=== PATIENT | male | born 1950 | race Caucasian/White ===

== ENCOUNTER → 2022-08-28 09:21 | Outpatient (BNVA) | payer MEDICARE, SELFPAY | PROVIDERS: PCP Family Medicine; Referring Provider Family Medicine; Visit Provider Student in an Organized Health Care Education/Training Program | DX: M16.11 Unilateral primary osteoarthritis, right hip (principal) | CPT/HCPCS: 99203 ==

== ENCOUNTER → 2022-08-31 09:54 | Outpatient (BNVA) | payer MEDICARE, SELFPAY | PROVIDERS: PCP Family Medicine; Referring Provider Family Medicine; Visit Provider Student in an Organized Health Care Education/Training Program | DX: M16.11 Unilateral primary osteoarthritis, right hip (principal) | CPT/HCPCS: 20611; J1040 ==

== ENCOUNTER 2022-12-08 12:07 | Outpatient (CLI) | payer MEDICARE, SELFPAY ==
--- NOTE | 2022-12-08 11:30 | DI.RAD_ITS ---
Exam(s) XR PELVIS AP EXAM: XR PELVIS AP CLINICAL HISTORY: right hip preop. TECHNIQUE: 2D digital imaging was performed. Single AP view with template ball. COMPARISON: CR XR HIP MIN 2V RT from 06/07/2022 FINDINGS: BONES: No acute fracture is present. No bony destructive lesion is seen. JOINTS: No dislocation present. There is severe narrowing of the superior hip joint space prominent p eriarticular spurring and sclerosis. Multiple subchondral cysts are noted, large cysts in the superi or acetabulum. There is some flattening of the superior femoral head in adjacent acetabulum. There is a left hip prosthesis which is unremarkable. SOFT TISSUE: Vascular calcifications. IMPRESSION: Severe degenerative changes of the right hip. Left hip prosthesis is unremarkable. DATA REPOSITORY: RADIATION DOSE DELIVERED:
== END 2022-12-08 12:08 | disposition home or self-care (01) ==
LOC: DIORS 12:07
PROVIDERS: PCP Family Medicine; Referring Provider Family Medicine; Visit Provider Physician Assistant
DX: M16.11 Unilateral primary osteoarthritis, right hip (principal); Z01.818 Encounter for other preprocedural examination
CPT/HCPCS: 72170

== ENCOUNTER 2022-12-19 01:49 | Outpatient (CLI) | payer MEDICARE, SELFPAY ==
[2022-12-19 11:00] LABS: Anion Gap 9.2 mmol/L (3-11); BUN 21 mg/dL (7-18); CO2 28.8 mmol/L (21.0-32.0); CREATININE 1.5 mg/dL (0.70-1.30); Calcium 9.8 mg/dL (8.5-10.1); Chloride 102 mmol/L (98-107); Estimated GFR 49.77 (mL/min/1.73m2); Glucose 238 mg/dL (74-106); HCT 42.1 % (40.0-50.0); HGB 14.5 g/dL (13.5-17.5); MCH 32.2 pg (27.0-33.0); MCHC 34.4 % (32.0-36.0); MCV 93 fL (80-95); MPV 11.1 fL (8.0-11.0); Platelet Count 184 10^3/uL (130-400); Potassium 3.9 mmol/L (3.5-5.1); RBC 4.51 10^6/uL (4.36-5.78); RDW 11.7 % (11.8-14.1); RDW-SD 40.5 fL; Sodium 140 mmol/L (136-145); WBC 5.02 10^3/uL (4.4-10.8)
[2022-12-19 11:04] LABS: Hemoglobin A1C 7.4 % (<5.7)
[2022-12-21 14:44] LABS: Fructosamine 278 mcmol/L (200 - 285)
== END 2022-12-19 01:50 | disposition home or self-care (01) ==
LOC: LBO 01:50
PROVIDERS: PCP Family Medicine; Visit Provider Student in an Organized Health Care Education/Training Program
DX: E11.9 Type 2 diabetes mellitus without complications (principal); M16.11 Unilateral primary osteoarthritis, right hip; Z01.818 Encounter for other preprocedural examination
CPT/HCPCS: 36415; 80048; 85027; 82985; 83036

== ENCOUNTER 2023-01-04 10:49 | Day surgery (SDC) | payer MEDICARE, SELFPAY ==
[2023-01-04] VITALS (8 sets, daily range): BP systolic 116–140; BP diastolic 61–79; PULSE 58–63; RESP 16–24; TEMP 36.4–36.6; O2SAT 94–98; BMI 34.4
--- NOTE | 2023-01-04 07:00 | W.ANESPRE ---
General Info Date of Service Date Performed: 01/04/23 Height: 5 ft 8 in Weight: 102.965 kg Body Mass Index (BMI): 34.4 Surgical Procedure: Operation Date: 01/04/23 12:50 Proposed Procedure Side Surgeon p Hip Total Hip Anterior, ACTIS Right Praneeth Wood MD Meds Allergies and Home Medications Allergies Allergy/AdvReac Type Severity Reaction Status Date / Time simvastatin AdvReac Mild muscle pain Verified 01/04/23 11:10 doxycycline AdvReac Nausea Verified 01/04/23 11:10 ezetimibe-simvastatin AdvReac Intermediate muscle pain Uncoded 01/04/23 11:10 Home Medication Medication Instructions Recorded acetaminophen 500 mg tablet 1,000 mg PO Q6H PRN 06/13/22 (Tylenol Extra Strength) amlodipine 10 mg tablet 10 mg PO DAILY 06/13/22 aspirin 81 mg tablet,delayed 81 mg PO DAILY 06/13/22 release (Adult Aspirin Regimen) fenofibrate 160 mg tablet 160 mg PO DAILY 06/13/22 gabapentin 100 mg capsule 100 mg PO TID 06/13/22 losartan 100 mg tablet 100 mg PO DAILY 06/13/22 tramadol 50 mg tablet 50 mg PO DAILY 06/13/22 metoprolol succinate 100 mg 100 mg PO DAILY 12/13/22 tablet,extended release 24 hr rosuvastatin 40 mg tablet 40 mg PO DAILY 12/13/22 semaglutide 3 mg tablet (Rybelsus) 3 mg PO DAILY 12/13/22 glimepiride 2 mg tablet mg 01/04/23 Current Visit Medications: Current Medications Generic Name Dose Route Start Last Admin Trade Name Long PRN Reason Stop Dose Admin Acetaminophen 1,000 mg 01/04/23 06:00 Acetaminophen 500 Mg Tab PO 01/04/23 23:59 PREOP MICHAEL Celecoxib 400 mg 01/04/23 06:00 Celecoxib 200 Mg Cap PO 01/04/23 23:59 PREOP MICHAEL Tranexamic Acid 1,000 mg/ 60 mls @ 360 mls/hr 01/04/23 06:00 Sodium Chloride IV 01/04/23 23:59 PREOP MICHAEL Cefazolin Sodium/Dextrose 2 gm in 50 mls @ 100 mls/hr 01/04/23 06:00 Ancef Duplex IVPB 01/04/23 16:00 PREOP MICHAEL Ringer's Solution 1,000 mls @ 80 mls/hr 01/04/23 06:00 IV 02/02/23 23:59 INFUSION MICHAEL IV Miscellaneous Supplies 1 each 01/04/23 06:00 Iv Access IV 02/02/23 23:59 DIRECTED MICHAEL Sodium Chloride 0 ml 01/04/23 06:00 Normal Saline Flush 10 Ml Syr IV 02/02/23 23:59 PRN PRN Sodium Chloride 0 ml 01/04/23 06:00 Normal Saline 10 Ml Vial IJ 02/02/23 23:59 DIRECTED PRN Sterile Water 0 ml 01/04/23 06:00 Water,Injection,Sterile 10 Ml Vial IJ 02/02/23 23:59 DIRECTED PRN PFSH Active Problems Active Problems: Problem Status Onset Code Degenerative joint disease of right hip M16.11 Type 2 diabetes mellitus E11.9 Atherosclerosis of coronary artery bypass graft I25.810 Medical History Medical History Obesity Low back pain Impotence Idiopathic osteoarthritis Hypertensive disorder Hyperlipidemia Claustrophobia Surgical History Surgical History Status post left hip replacement DOS: 05/17/2014 History of colonoscopy Hx of CABG DOS: 03/23/2010 History of cystoscopy Tobacco Smoking/Tobacco Use Status: Never Alcohol Alcohol Intake: current Alcohol intake frequency: 0-2 drinks per day Substance Use Substance use: Never Substance use type: does not use Vital Signs and Lab Results Vital Signs Most Recent Vital Signs in EMR: Temp Pulse Resp BP Pulse Ox 36.4 C L 60 18 130/71 98 01/04/23 10:55 01/04/23 10:55 01/04/23 10:55 01/04/23 10:55 01/04/23 10:55 Lab Results Blood Type / Crossmatch: No Data to Display Complete Blood Count: White Blood Count 5.02 10^3/uL (4.4-10.8) 12/19/22 10:25 Red Blood Count 4.51 10^6/uL (4.36-5.78) 12/19/22 10:25 Hemoglobin 14.5 g/dL (13.5-17.5) 12/19/22 10:25 Hematocrit 42.1 % (40.0-50.0) 12/19/22 10:25 Platelet Count 184 10^3/uL (130-400) 12/19/22 10:25 Complete Metabolic Panel: Sodium 140 mmol/L (136-145) 12/19/22 10:25 Potassium 3.9 mmol/L (3.5-5.1) 12/19/22 10:25 Chloride 102 mmol/L (98-107) 12/19/22 10:25 Carbon Dioxide 28.8 mmol/L (21.0-32.0) 12/19/22 10:25 BUN 21 mg/dL (7-18) H 12/19/22 10:25 Creatinine 1.5 mg/dL (0.70-1.30) H 12/19/22 10:25 Est GFR (CKD-EPI 2020) 49.77 (mL/min/1.73m2) 12/19/22 10:25 Calcium 9.8 mg/dL (8.5-10.1) 12/19/22 10:25 Glucose 238 mg/dL (74-106) H 12/19/22 10:25 Hemoglobin A1c 7.4 % (<5.7) H 12/19/22 10:25 Liver Function Panel: No Data to Display Coagulation Panel: No Data to Display Cardiac Panel: No Data to Display Arterial Blood Gas: No Data to Display Venous Blood Gas: No Data to Display Pancreas Panel: No Data to Display Thyroid Panel: No Data to Display Infectious Disease: No Data to Display Blood Cultures: No Data to Display Toxicology Panel: No Data to Display Anesthesia Assessment and Plan Anesthesia History Personal History: No History of Anesthesia Complications Family History: No Family History of Anesthesia Complications Exercise Tolerance Exercise Tolerance: Unknown (can go up stairs, but has to do one stair at a time due to his hip. ) Cardiac & Pulmonary Exam Cardiac Exam: Normal S1/S2 Heart Sounds Pulmonary Exam: Clear Bilateral Breath Sounds Implantable Cardiac Device Does patient have a Pacemaker or an ICD?: No Airway Exam Known Difficult Airway: No Mallampati Class: 3 Mouth Opening: Normal (> 3cm) Thyromental Distance: Less than 3 cm Neck Range of Motion: Limited ROM Neck Circumference: Thick Teeth Condition: Generalized Poor Dentition ASA Classification ASA Score: ASA 2 Emergency Case?: No NPO Status NPO Status: NPO Clears >2 hours, Solids >8 hours Anesthesia Plan Resuscitation Status: Full Code Anesthesia Technique: Spinal Anesthesia Airway Planned: Natural Airway Monitors Used: Standard Monitors Preoperative Comments:: 72 yo male for MOISES. Sig PMHx: CABG (2010, denies issues or chest pain), HTN (amlodipine, metoprolol, losartan), claustrophobia, DMII (A1c 7.4 in 0ct 23, rybelsus). never smoker, daily EtOH.
[2023-01-04] MEDS: Lactated Ringers 1,000 ML 80 ML IV (11:45)
[2023-01-04] MEDS: Acetaminophen 500 MG TAB 1000 MG PO (11:46)
[2023-01-04] MEDS: Celecoxib 200 MG CAP 400 MG PO (11:47)
--- NOTE | 2023-01-04 12:00 | DI.RAD_ITS ---
Exam(s) XR HIP RT IN OR EXAM: XR HIP RT IN OR CLINICAL HISTORY: Degenerative joint disease of right hip TECHNIQUE: 2D and realtime digital imaging was performed. CONTRAST MATERIAL: Refer to procedure report. COMPARISON: CR XR PELVIS AP from 12/08/2022 FINDINGS: Fluoroscopy was provided for Dr. Wood during the performance of a right total hip arthroplasty. Please refer to the procedure report for complete details. Ka,r=5.28 mGy IMPRESSION: RADIATION DOSE DELIVERED:
[2023-01-04] MEDS: ceFAZolin 2 GM/50 ML BAG IVPB (13:08)
--- NOTE | 2023-01-04 13:18 | PDOC.DSDIS_ITS ---
Date of service: 01/04/23 Time of Service: 15:24 Discharge Plan Disposition Patient Disposition: Home Condition: Good Discharge Details Reason For Visit: Right Hip DJD Attending Provider: Praneeth Wood Primary Care Provider: GUILLAUME JIMENEZ Home Meds and New Rx's Prescriptions: New acetaminophen 500 mg tablet 1,000 mg PO Q8H PRN (Reason: pain) Qty: 90 3RF aspirin 81 mg tablet,delayed release (DR/EC) 81 mg PO BID Qty: 60 0RF celecoxib 200 mg capsule 200 mg PO BID PRN (Reason: pain) Qty: 60 1RF pantoprazole 40 mg tablet,delayed release (DR/EC) 40 mg PO DAILY Qty: 30 0RF oxycodone 5 mg tablet 5 mg PO Q4H PRNQty: 18 0RF Continued amlodipine 10 mg tablet 10 mg PO DAILY fenofibrate 160 mg tablet 160 mg PO DAILY gabapentin 100 mg capsule 100 mg PO TID losartan 100 mg tablet 100 mg PO DAILY metoprolol succinate 100 mg tablet extended release 24 hr 100 mg PO DAILY rosuvastatin 40 mg tablet 40 mg PO DAILY Rybelsus 3 mg tablet 3 mg PO DAILY glimepiride 2 mg tablet Patient Comments: TAKE ONE TABLET BY MOUTH EVERY DAY Held aspirin [Adult Aspirin Regimen] 81 mg tablet,delayed release (DR/EC) 81 mg PO DAILY Hold Instructions: Resume on 02/03/23. Discontinued tramadol 50 mg tablet 50 mg PO DAILY acetaminophen [Tylenol Extra Strength] 500 mg tablet 1,000 mg PO Q6H PRN Discharge Instructions Additional Instructions: Total Hip Discharge Instructions Activity: The most important activity is to walk. You should try to take short walks a few times a day. You have no restrictions on movement or positioning, but do not try to force what you do. You will find some stiffness and weakness with hip flexion (lifting your knee). Do not try to strengthen this too early, continue to practice walking and stairs and this will come. - Outpatient physical therapy can be helpful to help return you to a normal gait and improve your flexibility and strength. This can start around 2 weeks. For some patients, it?s not necessary. Usually this is determined at the time of discharge or at the first post-operative visit. - You should wear the BROCK hose on both legs for 2 weeks. Dressing: Keep the surgical dressing in place for at least one week. After the first week it may be removed and replace with light gauze and tape or nothing. It may get wet after 3 days but avoid soaking the dressing. If it gets wet, just lightly pat dry. It is important to always keep some gauze between skin folds, especially when you are sitting. Spend some time with the wound exposed when you are lying flat as the incision does wrinkle onto itself. Medications: - You should take Tylenol and an anti-inflammatory Celebrex as your primary pain control medications. If the Celebrex is too expensive or not covered, please call the office for another alternative (Advil/Ibuprofen or Naproxen/Aleve). - You have been prescribed a stronger pain medication Oxycodone for breakthrough pain, take as needed as prescribed. - You have also been prescribed a stomach acid reduction agent Pantoprozole to help reduce stomach acid and reflux. - You will be taking Aspirin 81mg twice a day for DVT prevention unless instructed otherwise. - If you have constipation you should take Colace or Miralax (both [id number]). It takes most people 3-4 days to have a bowel movement. Follow-up: 2 weeks If you have any acute concerns or questions, please do not hesitate to contact the office at [phone]. You may contact Dr. Wood with any questions after hours through the hospital at [phone] or on his cell phone at [phone]. Referrals: Praneeth Wood MD [ [facility] STAFF PHYSICIAN] - Equipment/Supplies: Walker Activity:: Activity as Tolerated Shower/Bathe:: Cover Diet:: Carb Counting Discharge Orders Discharge Orders: Discharge Order (Routine); Ordered 01/04/23 Ordered By: Praneeth Wood
--- NOTE | 2023-01-04 15:34 | W.PM.OP ---
Date of service: 01/04/23 Time of Service: 13:30 Operative Note Operative Note DATE OF PROCEDURE: 01/04/23 PRE-OP DIAGNOSIS: Right Hip Osteoarthritis POST-OP DIAGNOSIS: same PROCEDURE: Right Anterior Total Hip Arthroplasty with Intraoperative Navigation SURGEON: Praneeth Wood SUPERINTENDENT [employer] FIELD DRILLING: Karla Carlton ANESTHESIA TYPE: Spinal Refer to Anesthesia Record ESTIMATED BLOOD LOSS: 600 PATHOLOGY: none sent TOURNIQUET TIME: 0 COMPLICATIONS: None Patient was transported to: PACU Patient's condition: stable Implants: 1. Depuy Dateland Acetabular Component, 54mm 2. Depuy Acetabular Liner, [id number] 3. Depuy Actis Standard Collared Femoral Stem, Size 5 4. Depuy Altrx Ceramic Femoral Head, Size 36+12mm Indications: I have seen Jas in clinic for symptoms of hip arthritis, confirmed with radiographic findings. He has exhausted nonoperative methods and was having significant limitations in daily function and desired better function and less pain. I discussed the technical details of a hip replacement. I explained the risks of the procedure to include, but not limited to, bleeding, infection, pain, stiffness, fracture, damage to nerves and vessels, damage to muscles and tendons, loosening, instability, leg length inequality, need for repeat procedure, blood clot and cardiopulmonary demise. Despite these risks, Jas elected to proceed. Findings: There was significant signs of arthritis throughout the hip with large osteophytes and contracted capsular tissue. Procedure Description: Jas was greeted in the preoperative holding area where the correct side was identified and marked. The consent was reviewed with the patient and signed. The history and physical was updated. All questions were answered. He was taken back to the operating room. A spinal anesthestic was then administered. The feet were wrapped with cast padding and Coban and then placed into the boot liners and then into the boots. Care was taken to protect the skin and make sure the heels were fully down and the boots were stable. The patient was then positioned onto the HANA table. Both legs were held in a neutral position. SCDs were applied. The patient was then slid down onto a peroneal post. Prophylactic antibiotics in the form of Cefazolin were administered. 1g of Tranxemic Acid was given intravenously within 30 minutes of incision. The right leg was then prepped with Chloraprep and draped in a standard fashion. A second prep with Chloraprep was performed prior to placement of a shower-curtain type drape with Iodine impregnated skin protection. A timeout to confirm correct identity, side and site, procedure, allergies, anesthesia, and medical concerns was performed. An obliquely oriented incision was made starting lateral to the ASIS and running distal over the Tensor Fascia Geno (TFL) muscle belly toward the fibular head, approximately 10cm. The skin and soft tissue was dissected sharply, through Jamie?s fascia, and to the fascia of the TFL. With the fascia and superior border of the IT band identified, the fascia was incised with a new knife just above any perforators from the IT band. The TFL muscle belly was bluntly dissected away from the fascia and moved laterally. The fat between TFL and rectus was identified to ensure the dissection was not within the TFL. Blunt dissection created space between abductors and the capsule and retractor was placed over the lateral femoral neck. The fibers of the rectus femoris tendon were identified and these were freed from the anterior capsule. A second cobra retractor was placed around the medial femoral neck. The TFL was further retracted laterally to show the deep fascia. Careful dissection through this layer identified three main crossing vessels of the lateral femoral circumflex. These were cauterized in multiple locations and then cut without any noticeable bleeding. The TFL was further released bluntly from the deep fascia to expose anterior hip capsule and fat The Yousif orthopaedic retractor was then placed beneath the TFL and against sartorius and medial soft tissues to protect and retract the soft tissues. A T-capsulotomy was then performed starting at the superior lateral acetabulum and moving distally to the intertrochanteric ridge. These capsular flaps were tagged with a No. 1 Ethibond and elevated from within. The capsular flaps were released to the shoulder of the lateral neck and to the lesser trochanter to give excellent visualization of the proximal femur. A neck osteotomy was performed using an oscillating saw based on preoperative templates. This cut started in the shoulder and of the lateral neck and exited medially. The saw was at all times directed medially to avoid injury to the greater trochanter. Gross traction was applied to the leg and the osteotomy opened. The femoral head was removed with a corkscrew, making sure to protect the TFL on its exit. Traction was released after head removal. This was measured on the back table to determine the starting reamer size. Portions of the rectus obscuring visualization were minimally elevated off the superior acetabulum. An anterior retractor was placed over the anterior wall between capsule and labrum and attached to the Gripper retraction system. The femur was rotated to 90 degrees and medial capsule was fully released until the lesser trochanter was palpable and visible; the femur was returned to 30 degrees. A posterior retractor was placed similarly between capsule and labrum. This provided excellent visualization. The contents of the cotyloid fossa were removed with electrocautery and the labrum was removed with a knife. There was a notable floor osteophyte. There was significant chondromalacia of the superior acetabulum. Acetabular reaming began with a 48mm reamer. This first reaming was directed anterior to posterior and medial to get down to the true floor. This was inspected and reamed until the true floor was reached. The anterior retractor was then released and entry and exit was provided by traction on the capsular flaps. I then reamed sequentially up to a 54mm reamer where good fit was obtained. The larger reamers were oriented based on anatomical reference of the anterior and lateral kelly to ensure proper abduction and anteversion. Positioning and size was confirmed with the fluoroscopy. A 54mm Depuy [place] acetabular component was selected. The acetabulum was reamed around the periphery with the selected acetabular size to prevent a rim fit. The deep tissues were irrigated. The acetabular component was then impacted in a position of about 40-45 degrees of abduction and 15-20 degrees of anteversion, using the patient?s anatomy as the ultimate landmark. Fluoroscopy was used to confirm this. There was excellent conservation engineer of the acetabular component and the inserting handle was removed. The acetabular liner, Depuy [id number] polyethylene liner, was inserted and lined up with the tines of the acetabular component. There was no soft tissue interposition. The liner was then impacted into position and confirmed to be well-seated. A portion of the indra-articular cocktail was then injected around the acetabulum into the capsule and periosteum. This cocktail consisted of 123mg of Ropivacaine, 0.25mg of Epinephrine, 0.04mg of Clonidine, and 15mg of Ketorolac, diluted to 50cc. The leg was rotated to 120 degrees. Any remaining medial capsule was released until the lesser trochanter was easily palpable. A retractor was placed medially. The lateral capsule was further released into the shoulder to allow access to the greater trochanter. A Anderson retractor was placed over the greater trochanter which allowed the trochanter to flip in front of the capsule for excellent exposure. The leg was brought down into maximal extension and 20 degrees of adduction while ensuring there was no impingement on the acetabulum. Any remnant capsule within the trochanter was released. Piriformis and obturator externis were identified and protected. There was excellent access to the proximal femur. The lateral neck remnant was removed with a rongeur. A blunt canal probe was used to identify the canal and trajectory for later broaching. A box osteotome initiated the broach course. A small curved rasp and a curved curette were used to work laterally. Broaching then began with a starter Actis broach. This was inserted manually around the trochanter and into the canal before mallet blows. The broach was seated to a few millimeters below the cut level based on the neck cut and the preoperative template. Sequential broaching was continued with the [employer] pneumatic broaching device until a tight fit was obtained with good rotational control of the femur. A trial standard neck was inserted along with a +5 trial head. The leg was brought out of extension and adduction and then reduced with traction and internal rotation. The leg was stable anteriorly in a position of 30 degrees of extension and 90 degrees of external rotation. Fluoroscopy was used to ensure there was no fracture and the stem was seated well. Leg lengths were checked with an AP pelvis and pelvic reference points. [facility] navigation system was used to confirm appropriate positioning and leg length and offset. Once content with the desired offset and leg lengths, the leg was brought back into extension, external rotation and adduction. The periosteum and surrounding tissue was injected with remaining portion of the indra-articular cocktail. The proximal femur was irrigated as well as the deep tissues. The [employer] standard collared stem, size 5, was then manually inserted into the proximal femur making sure to control rotation. It was then malleted into position with light blows, giving breaks to allow bone expansion and decrease risk of fracture. The selected Depuy Altrx Ceramic Head, size 36+12mm, was then placed onto the clean and dry trunnion and secured with impaction onto the tapered fit. The leg was brought back out of extension and adduction and reduced with traction and internal rotation. Stability was confirmed with no shuck at 90 degrees of external rotation and 30 degrees of extension. No impingement through range of motion arc. Final x-ray images were obtained with fluoroscopy to confirm adequate positioning and no intraoperative fracture. The deep tissues were thoroughly irrigated with Surgiphor, betadine solution. This was allowed to sit in the wound for 3 minutes before being thoroughly irrigated out with normal saline. The capsule was then reapproximated with the previously placed Ethibond sutures. The TFL fascia was finally closed with a No. 2 Stratafix, barbed suture. Deep tissues were then reapproximated with 0 Vicryl and a running 2-0 Vicryl. The skin was closed with a running 4-0 Monocryl in a subcuticular fashion. This was reinforced with skin glue. A Mepilex silver dressing was applied. At the end of the case, all counts were correct. Jas was transferred to the hospital bed without difficulty and suffering no apparent complication. Jas has a good prognosis. Physical therapy will start today and without restrictions, weight-bearing as tolerated. Aspirin 81mg BID will be used for DVT prophylaxis.
[2023-01-04] MEDS: fentaNYL 100 MCG/2 ML VIAL IVP (15:39)
--- NOTE | 2023-01-04 16:01 | W.ANESPOSTOP ---
Postoperative Evaluation Date, Time and Location Date Performed: 01/04/23 Time Performed: 16:01 Patient Location: PACU Vital Signs Most Recent Imported Vital Signs: Most Recent Vital Signs Temp Pulse Resp BP Pulse Ox 36.6 C 60 16 129/79 97 01/04/23 15:55 01/04/23 15:55 01/04/23 15:55 01/04/23 15:55 01/04/23 15:55 Pain Score Most Recent Pain Score: Most Recent Pain Score Pain Level 2 01/04/23 10:55 Assessment Mental Status: Awake (Alert & Oriented to Patient Baseline) Airway and Respiratory Function: Patent airway with normal (patient baseline) respiratory exam Cardiovascular Function: Hemodynamically Stable Hydration Status: Adequately Hydrated Nausea & Vomiting: No Nausea or Vomiting Pain: Pain is tolerable per patient Peripheral Nerve Block: Patient did not receive a nerve block
--- NOTE | 2023-01-04 16:18 | IN_ITS ---
Date of service: 01/04/23 Time of Service: 04:18 PT Notes Visit Reasons: Right Hip DJD Physical Therapy Day Surgery Initial Evaluation Date: 01/04/2023 Referring Doctor: Praneeth Wood MD PT Orders: PT CONSULT: SP Ortho Surgery. S/P R MOISES Precautions: WBAT on the R LE with AD. Patient Profile/Admitting Diagnosis: Jas is a 72-year-old male with degenerative joint disease of the right hip and is status post right total hip arthroplasty on postoperative day 0. PMHX: Medical History (Updated 12/05/22 @ 15:21 by Erna Hanna) Claustrophobia Hyperlipidemia Hypertensive disorder Idiopathic osteoarthritis Impotence Low back pain Obesity Surgical History (Updated 08/28/22 @ 17:09 by Erna Hanna) History of colonoscopy History of cystoscopy Hx of CABG Status post left hip replacement DOS: 05/17/2014 Social History/Home Situation: Lives with in a private home with no steps to enter DOS: 03/23/2010 Equipment Owned/DME: None Subjective: Reports a 2?10 pain in the right hip and thigh at rest and with movement. Denies headache, chest pain, and lightheadedness throughout session. Objective: General Observation: Supine in bed. Mepilex Ag over surgical incision. TEDs to be legs. Mental Status: Alert and oriented x4 Pain: As above ROM: Right Lower Extremity: Hip flexion WFL. Hip abduction WFL. Knee flexion WFL. Ankle dorsiflexion WFL. Ankle plantarflexion WFL. Left Lower Extremity: Hip flexion WFL. Hip abduction WFL. Knee flexion WFL. Ankle dorsiflexion WFL. Ankle plantarflexion WFL. Strength: Right Lower Extremity: Hip flexors 4/5. Hip abductors 4/5. Knee flexors 5/5. Knee extensors 4/5. Ankle dorsiflexors 5/5. Ankle plantarflexors 5/5. Left Lower Extremity:Hip flexors 5/5. Hip abductors 5/5. Knee flexors 5/5. Knee extensors 5/5. Ankle dorsiflexors 5/5. Ankle plantarflexors 5/5. Sensation: intact as to pain and light pressure in bilateral lower extremities Bed Mobility/Transfers: Supine to sit stand by assist with cues provided for use of BUE for support Sit to stand stand by assist with cues provided for use of BUE for support Stand to sit stand by assist with cues provided for use of BUE for support Bed to chair stand by assist with cues provided for use of BUE for support Gait: Facilitated safe and correct performance of level surface ambulation covering a distance of 100 feet + 50 feet using front-wheel walker with step to gait pattern without report of increased pain in the right hip. Balance: Static Sitting: Normal Dynamic Sitting: Normal Static Standing: Fair Dynamic Standing: fair Special Tests: Mobility Limitations Standardized Measure [facility] AM-PAC 6 clicks Basic Mobility Inpatient Short Form: Raw Score: 22 CMS Score: 21% deficit Informed Consent/Education: Patient instructed in purpose of PT consult. Packet containing MOISES exercise protocol has been given to patient. Education and training on initial set of exercises that can be done at home have been completed with patient. Trained patient with correct performance of exercises below to maximize motor control, joint flexibility, soft tissue extensibility of the R hip musculature to facilitate return to independent functional mobility performance. Access Code: [email or web address] URL: [email or web address] Date: 01/04/2023 Prepared by: Windy Milligan Exercises - Gluteal Sets - 1 x daily - 7 x weekly - 1 sets - 10 reps - 5 hold - Supine Heel Slide - 1 x daily - 7 x weekly - 1 sets - 10 reps - 5 hold - Supine Ankle Pumps - 1 x daily - 7 x weekly - 1 sets - 10 reps - 5 hold - Seated March - 1 x daily - 7 x weekly - 1 sets - 10 reps - 5 hold - Seated Long Arc Quad - 1 x daily - 7 x weekly - 1 sets - 10 reps - 5 hold Assessment: Patient reports using front wheeled walker for all mobility ADL performance to maximize independence and reduce fall risk. Patient presents with clinical signs and symptoms consistent with current/admitting diagnoses that have resulted to mobility limitations, gait instability, generalized weakness, and impairment of motor control as demonstrated by the following impairment level findings: 1. Decreased strength to right hip nee major muscle groups 2. Impaired standing balance 3. Limitation of joint range of motion in right hip Impairments are contributing to the following functional limitations: 1. Inability to safely ambulate without assistive device 2. Increase completion time for mobility ADL performance 3. Increased fall risk Patient is assessed as a 39276 moderate complexity based on the following: History: 72 [id number] male with impairment level findings, functional limitations, and past medical history as indicated above Examination: Demonstrable impairment in strength, balance, and mobility level with underlying impairments and functional limitations as documented above Presentation: Evolving Decision Makin moderate complexity Goals: N/A. PT evaluation and 1-2 treatment sessions only for functional mobility training using recommended AD and for HEP instruction. Plan of Care/Treatment Plan: N/A. PT evaluation and 1-2 treatment session only for functional mobility training using recommended AD and for HEP instruction. DISCHARGE RECOMMENDATIONS: Home when medically cleared by orthopedic surgeon. Recommend outpatient PT services in order to optimize functional mobility outcomes and facilitate return to independent community ambulation without an assistive device. TREATMENT CODE/TIME: 18084 x 26 minutes for 1 unit beginning at 16:18 PM. Thank you for the opportunity to participate in the care of this patient. Windy Milligan PT, DPT, CLT [facility] [place], [place]
[2023-01-04] MEDS: oxyCODONE 5 MG TAB PO (16:20)
== END 2023-01-04 17:20 | disposition home or self-care (01) ==
PROVIDERS: PCP Family Medicine; Visit Provider Student in an Organized Health Care Education/Training Program
PROC: (CPT 27130; principal; 2023-01-04 12:30)
DX: M16.11 Unilateral primary osteoarthritis, right hip (principal); E11.9 Type 2 diabetes mellitus without complications; Z79.899 Other long term (current) drug therapy; I10 Essential (primary) hypertension; E78.5 Hyperlipidemia, unspecified
CPT/HCPCS: 20985; 27130; C1776; 97162; 73501; J0690; J1100; J2001; J2250; J2371; J2405; J3010

== ENCOUNTER 2023-01-18 10:17 | Observation (INO) | payer MEDICARE, SELFPAY ==
[2023-01-18] VITALS (41 sets, daily range): BP systolic 109–161; BP diastolic 54–84; PULSE 47–62; RESP 16–28; TEMP 36.8–37.2; O2SAT 94–100
--- NOTE | 2023-01-18 10:15 | RT.EKG_ITS ---
APPROVED REPORT Exam: Resting ECG Reason for Exam: sob Patient Location: E HR:58 bpm ECG Measurements Heart Rate 58 AXIS AK 173 P 34 QRSd 103 QRS 45 QT 439 T 98 QTc 430 Conclusion Sinus bradycardia...rate< 60 Anteroseptal infarct, old...Q >40mS, V1-V2 ST depression I, aVL. T wave inversion in aVL T wave flattening in V6. [address] elevation in III, no o ther leads. Q wave in III, V1, V2. Minor changes from previous
--- NOTE | 2023-01-18 10:20 | W.ED.GENAD ---
Discharge Plan Disposition Patient Disposition: Admit to [facility] Discharge Details Clinical Impression: Chest pain, Atherosclerosis of coronary artery bypass graft, History of total right hip replacement, Shortness of breath, Type 2 diabetes mellitus, Abnormal ECG Primary Care Provider: GUILLAUME JIMENEZ ED Provider: Tracy Alvarez Home Meds and New Rx's Prescriptions: No Action aspirin 81 mg tablet,delayed release (DR/EC) 81 mg PO BID Qty: 60 0RF pantoprazole 40 mg tablet,delayed release (DR/EC) 40 mg PO DAILY Qty: 30 0RF acetaminophen 500 mg tablet 1,000 mg PO Q8H PRN (Reason: pain) Qty: 90 3RF amlodipine 10 mg tablet 10 mg PO DAILY aspirin [Adult Aspirin Regimen] 81 mg tablet,delayed release (DR/EC) 81 mg PO DAILY Hold Instructions: Resume on 02/03/23. fenofibrate 160 mg tablet 160 mg PO DAILY losartan 100 mg tablet 100 mg PO DAILY metoprolol succinate 100 mg tablet extended release 24 hr 100 mg PO DAILY rosuvastatin 40 mg tablet 40 mg PO DAILY Rybelsus 3 mg tablet 3 mg PO DAILY Hold Instructions: Changed by Provider glimepiride 2 mg tablet 2 mg PO DAILY Patient Comments: TAKE ONE TABLET BY MOUTH EVERY DAY celecoxib 200 mg capsule 200 mg PO BID Discharge Data Discharge Physician: Tracy Alvarez Medical Decision Making This is a 73-year-old male with history of coronary artery bypass grafting who is status post right hip replacement 2 weeks ago who presents with exertional nonpleuritic right-sided chest pain similar to his previous symptoms prior to his bypass grafting. He has some mild ST depression and isolated ST elevation in lead III but not in any contiguous leads. He has swelling of the right leg which is expected after right hip replacement but could also be a PE/DVT. I feel strongly that the patient should be admitted but we will do a work-up including a D-dimer, EKG and troponin. The patient has not had any cardiac work-up such as stress testing or echocardiogram since his bypass 11 years ago. We will also repeat his EKG and obtain a CBC to rule out anemia and left shift we will obtain a D-dimer and BNP to rule out congestive heart failure. I will also order a right lower extremity ultrasound to look for DVT. The patient is currently pain-free, but I will give him a full loading dose of aspirin and if he develops any further chest pain we will give him nitroglycerin. Differential Diagnosis Differential Diagnosis: ACS, exertional angina, PE, pneumonia, GERD Medical Records Medical records reviewed: Yes I reviewed the patient's medical records. Imaging Data Radiologic Study: Imaging: X-Ray (Chest x-ray) Radiologist's impression: No acute pulmonary findings Radiologic Study #2: Imaging: CT Scan (CTA chest) Radiologic Study #3: Imaging: Ultrasound (Right lower leg ultrasound) Radiologist's impression: 1. No evidence of right lower extremity DVT. 2. Findings were discussed with the emergency department 11:45 AM on 01/18/2023. Lab Data Lab results reviewed: Yes I reviewed the patient's lab results. Lab results narrative: Mild anemia elevated D-dimer mild renal insufficiency, hyperglycemia, elevated proBNP suggestive of congestive heart failure, negative COVID influenza and RSV ECG Data Attestation: I personally reviewed and interpreted this ECG (s) as follows: Prior ECG tracings: available for review HPI General Date/Time Provider Initiated Documentation: 01/18/23 10:20. Information obtained by: patient and family (Significant other, Dr. Wood). History of Present Illness described as moderate, Quality is described as burning, HPI Narrative: Time seen was 10:30 AM in bed 1. The patient is a 73-year-old male with history of coronary artery bypass grafting 11 years ago who presents with dyspnea on exertion and right-sided burning chest pain which began approximately 1 weeks ago. The patient had a right hip replacement by Dr. Wood 2 weeks ago. The patient said about a week ago he began noting shortness of breath and right-sided chest burning with exertion which was relieved by rest. He tells me this is similar to the symptoms he had prior to his bypass grafting. The pain is relieved after 1 to 2 minutes with rest. He is currently pain-free. He had difficulty giving me a numeric pain score. The patient states he has not had any testing such as stress testing or echocardiogram since his bypass in 2010. He tells me the chest pain was not pleuritic and he is not short of breath at rest. He denies any fevers or chills. He denies any cough or URI symptoms. He does have swelling in the right leg since the surgery 2 weeks ago. He has no history of thromboembolic disease. The patient usually takes 1 baby aspirin a day but has been advised to take it twice daily since the surgery. He denies any fevers or chills. He denies any radiation down his arms or to his back. He denies any abdominal pain, numbness tingling or weakness. The patient tells me he is very reluctant to be admitted to the hospital but would not elaborate other than stating he does not like being admitted. The patient also tells me that he drinks 1-2 cocktails a day. He tells me he does not have difficulty stopping and does not have any withdrawal symptoms. 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 Related Data Home Medications Medication Instructions Recorded Confirmed amlodipine 10 mg tablet 10 mg PO DAILY 06/13/22 01/18/23 aspirin 81 mg tablet,delayed 81 mg PO DAILY 06/13/22 01/18/23 release (Adult Aspirin Regimen) fenofibrate 160 mg tablet 160 mg PO DAILY 06/13/22 01/18/23 losartan 100 mg tablet 100 mg PO DAILY 06/13/22 01/18/23 metoprolol succinate 100 mg 100 mg PO DAILY 12/13/22 01/18/23 tablet,extended release 24 hr rosuvastatin 40 mg tablet 40 mg PO DAILY 12/13/22 01/18/23 semaglutide 3 mg tablet (Rybelsus) 3 mg PO DAILY 12/13/22 01/18/23 acetaminophen 500 mg tablet 1,000 mg (2 x 500 mg) PO Q8H PRN 01/04/23 01/18/23 pain #90 tabs aspirin 81 mg tablet,delayed 81 mg PO BID #60 tabs 01/04/23 01/18/23 release glimepiride 2 mg tablet 2 mg PO DAILY 01/04/23 01/18/23 pantoprazole 40 mg tablet,delayed 40 mg PO DAILY #30 tabs 01/04/23 01/18/23 release celecoxib 200 mg capsule 200 mg PO BID pain 01/18/23 01/18/23 Previous Rx's Medication Instructions Recorded acetaminophen 500 mg tablet 1,000 mg (2 x 500 mg) PO Q8H PRN 01/04/23 pain #90 tabs aspirin 81 mg tablet,delayed 81 mg PO BID #60 tabs 01/04/23 release pantoprazole 40 mg tablet,delayed 40 mg PO DAILY #30 tabs 01/04/23 release Allergies Allergy/AdvReac Type Severity Reaction Status Date / Time simvastatin AdvReac Mild muscle pain Verified 01/18/23 10:56 doxycycline AdvReac Nausea Verified 01/18/23 10:56 ezetimibe-simvastatin AdvReac Intermediate muscle pain Uncoded 01/18/23 10:56 Review of Systems Narrative: see hpi Musculoskeletal Comments: Right hip replacement and right leg swelling PFSH All Active Problems (Updated 01/18/23 @ 15:47 by Pat Osborne NP) Heart failure (Acute) Abnormal ECG (Acute) Chest pain (Acute) Shortness of breath (Acute) History of total right hip replacement (Acute 01/04/23) Type 2 diabetes mellitus (Acute) Atherosclerosis of coronary artery bypass graft (Acute) Medical History (Updated 01/18/23 @ 15:47 by Pat Osborne NP) Obesity Low back pain Impotence Idiopathic osteoarthritis Hypertensive disorder Hyperlipidemia Claustrophobia Surgical History (Updated 01/18/23 @ 12:46 by Tracy Alvarez MD) Status post left hip replacement DOS: 05/17/2014 History of colonoscopy Hx of CABG DOS: 03/23/2010 History of cystoscopy Social History Smoking/Tobacco Use Status: Never Smoking risk assessment performed?: Yes Alcohol Intake: current Alcohol Intake frequency: 0-2 drinks per day Drug use: Never Substance use type: does not use Housing: house Do you feel safe at home: Yes Do you feel safe in your relationship?: Yes Exam Narrative Exam Narrative: The patient is a well-developed well-nourished male lying on the stretcher in no acute distress. He has mild facial weakness. He is mildly hypertensive his heart rate is 59. Respiratory rate 22 with a room air O2 sat of 100%. He is able to speak in full sentences. Const General: cooperative, healthy appearing, comfortable, no acute distress, well developed, well groomed and well hydrated Nutritional Appearance: average body habitus and well nourished Orientation: alert, awake and oriented x3 HENMT Head: normal to inspection, normocephalic and atraumatic Ears: hearing grossly normal bilaterally and external ears normal General nose exam: external nose normal, nares normal and no nasal discharge Face and sinus: sinuses nontender Mouth: oral mucosae normal, lip normal, tongue normal, oropharynx normal, moist mucous membranes and other (Normal phonation. The patient is handling secretions.) Throat: posterior oropharynx normal and uvula midline Other: Mild right facial weakness Eyes General: appearance normal, both eyes and all related structures Eyelids: eyelids normal Conjunctivae: conjunctivae normal Sclera: sclerae normal Cornea: corneas normal Pupils: PERRL EOM: EOM intact bilaterally and No nystagmus Neck Neck: normal visual inspection, full ROM, no lymphadenopathy, no meningeal signs, trachea midline and supple Lymphatic: no lymphadenopathy noted Chest Chest: normal inspection of the chest Resp Effort & Inspection: normal respiratory effort, able to speak in complete sentences, no audible wheezes, no nasal flaring, no respiratory distress, no retractions, no stridor, not tachypneic, no tracheal deviation, no use of accessory muscles, No prolonged expiratory phase and other (Normal inspiratory to expiratory ratio.) Auscultation: clear to auscultation bilaterally, no rales, no rhonchi, no wheezes and no rubs Tactile Fremitus: tactile fremitus absent Cardio Jugular venous pressure: no JVD Palpation: normal PMI Rate: regular rate Rhythm: regular rhythm Heart Sounds: S1 normal, S2 normal, no gallops, no murmurs and no rubs Other: The patient has a well-healed sternotomy scar GI Inspection: normal to inspection and non-distended Palpation: soft, no hepatosplenomegaly, no guarding and nontender Percussion: normal to percussion Auscultation: normal bowel sounds General: No CVA tenderness Back/Spine/Pelvis Back: no CVA tenderness and No back tenderness Cervical Spine: normal cervical lordosis, cervical ROM normal, No cervical muscular tenderness, No pain with cervical ROM, No cervical spinal tenderness and No step off deformity Thoracic/Lumbar Spine: thoracic and lumbar spine normal to inspection, No thoracic spinal tenderness and No lumbar spinal tenderness Pelvis: no pain with anterior-posterior compression and no pain with lateral compression Skin General skin exam: no rashes or lesions noted, turgor normal, no petechiae, no purpura and other (Skin is normal for ethnicity.) Lesions: no lesions Rashes: no rashes Trauma: no lacerations or abrasions Neuro General: patient alert, patient awake, patient oriented x3, moves all extremities and no meningeal signs Cranial Nerves: PERRL, accommodation normal, EOM intact bilaterally, no nystagmus, tongue midline, hearing normal and no nystagmus Cognition: normal cognition Speech: speech normal Motor: muscle tone normal throughout and strength 5/5 throughout Sensory Exam: no sensory deficits noted Other: Mild right facial weakness Extrem Other: The patient has right lower extremity swelling up to the right hip. He is otherwise neurovascularly intact. The swelling is asymmetric. He has normal cap refill. Psych Appearance: grossly normal Speech and Movement: speech and movement normal Mood: congruent mood Affect: normal affect Attitude: cooperative Thought Process: normal Thought Content: normal Insight: insight good Judgment: judgment good Other: The patient appears to have capacity make medical decisions, but is reluctant to be admitted. He is not clinically intoxicated Course I discussed the patient's condition with his significant other who concurred with the choice to admit. The patient was also seen by Dr. Wood in the department who also emphasized that the patient should stay. Reevaluation(s) Initial Evaluation: The hospitalist requested that we get a CTA to rule out PE because of the elevated D-dimer despite the negative right lower leg ultrasound because it has a not insignificant false-negative rate. Critical Care Time Critical Care Time Critical Care Time: Yes Total Critical Care Time: 72 Attestation: This includes time at bedside, discussion with hospitalist, review of old records, review of labs and radiographs, and multiple evaluations of the patient
--- NOTE | 2023-01-18 10:45 | RT.EKG_ITS ---
APPROVED REPORT Exam: Resting ECG Reason for Exam: chest pain Patient Location: E HR:58 bpm ECG Measurements Heart Rate 58 AXIS ND 172 P 32 QRSd 86 QRS 39 QT 442 T 104 QTc 433 Conclusion Sinus bradycardia...rate< 60 Consider anteroseptal infarct...Q >30mS, dimin R, V1-V2 Nonspecific T abnormalities, lateral leads...T <-0.10mV, I aVL V5 V6 NSR slight ST elev of 1 mm in only lead II. Q waves in III, V1 and V2. Nonspecific STTW changes, sli ghtly improved from previous.
--- NOTE | 2023-01-18 10:45 | RT.EKG_ITS ---
APPROVED REPORT Exam: Resting ECG Reason for Exam: CP and SOB Patient Location: E HR:50 bpm ECG Measurements Heart Rate 50 AXIS MD 181 P 55 QRSd 86 QRS 45 QT 471 T 86 QTc 431 Conclusion Sinus bradycardia...rate< 60 Consider anteroseptal infarct...Q >30mS, dimin R, V1-V2
--- NOTE | 2023-01-18 10:45 | DI.RAD_ITS ---
Exam(s) XR PORTABLE CHEST AP EXAM: XR PORTABLE CHEST AP CLINICAL HISTORY: CP and SOB TECHNIQUE: 2D digital imaging was performed of the chest. One image was obtained. An AP view was ob tained. COMPARISON: No exams were available for comparison FINDINGS: MEDIASTINUM: Normal. HEART: Cardiomegaly. Status post CABG. PULMONARY VASCULATURE: Normal. LUNGS: Clear. PLEURAL SPACE: No pleural effusion or pneumothorax. BONE:Within normal limits for the patient's age. OTHER FINDINGS:Normal. IMPRESSION: No acute pulmonary findings. DATA REPOSITORY: RADIATION DOSE DELIVERED:
[2023-01-18 10:57] LABS: Abs Immature Grans 0.03 10^3/uL (0.0-0.06); Absolute Basophil Count 0.03 10^3/uL (0.0-0.2); Absolute Eosinophil Count 0.17 10^3/uL (0.0-0.7); Absolute Lymphocyte Count 0.88 10^3/uL (1.2-3.4); Absolute Monocyte Count 0.41 10^3/uL (0.1-0.8); Absolute Neutrophil Count 7.42 10^3/uL (1.2-6.7); Basophils % 0.3; Eosinophils % 1.9; HCT 32.3 % (40.0-50.0); HGB 10.7 g/dL (13.5-17.5); Immature Grans % 0.3; Lymphocytes % 9.8; MCH 31.7 pg (27.0-33.0); MCHC 33.1 % (32.0-36.0); MCV 96 fL (80-95); MPV 11.2 fL (8.0-11.0); Monocytes % 4.6; Neutrophils % 83.1; Platelet Count 203 10^3/uL (130-400); RBC 3.38 10^6/uL (4.36-5.78); RDW-SD 43.9 fL; WBC 8.94 10^3/uL (4.4-10.8)
--- NOTE | 2023-01-18 11:00 | DI.US_ITS ---
Exam(s) US LOWER EXTREMITY VENOUS RT EXAM: US LOWER EXTREMITY VENOUS RT CLINICAL HISTORY: leg swellling s/p hip replacement 2 wk, r/o dvt TECHNIQUE: Right lower extremity venous ultrasound performed using grayscale, color-flow, and spectr al Doppler analysis. COMPARISON: No exams were available for comparison FINDINGS: The right common femoral, femoral and popliteal veins demonstrate normal compressibility, augmentatio n, and color Doppler. The posterior tibial and peroneal veins are patent. The saphenofemoral junctio n is unremarkable. There is no evidence of a Gar cyst. The soft tissues are unremarkable. IMPRESSION: 1. No evidence of a right lower extremity DVT. 2. Findings were discussed with the emergency department at 11:45 a.m. on 01/18/2023. DATA REPOSITORY:
[2023-01-18] MEDS: Aspirin 81 MG CHEW 243 MG CH (11:11)
[2023-01-18 11:12] LABS: INR 1.1 (0.9-1.1); PTT Activated 24.3 sec (23.6-32.8); Prothrombin Time 10.9 sec (9.1-11.1)
[2023-01-18 11:16] LABS: ALT 34 U/L (16-63); AST 24 U/L (15-37); Albumin 3.5 g/dL (3.4-5.0); Alkaline Phosphatase 54 U/L (46-116); Anion Gap 9.3 mmol/L (3-11); BUN 25 mg/dL (7-18); Bilirubin, Total 0.5 mg/dL (0.2-1.0); CO2 23.7 mmol/L (21.0-32.0); CREATININE 1.6 mg/dL (0.70-1.30); Calcium 9.6 mg/dL (8.5-10.1); Chloride 104 mmol/L (98-107); Estimated GFR 45.78 (mL/min/1.73m2); Glucose 299 mg/dL (74-106); Magnesium 1.9 mg/dL (1.8-2.4); Sodium 137 mmol/L (136-145); Total Protein 7.2 g/dL (6.4-8.2)
[2023-01-18 11:21] LABS: NT-proBNP 2486 pg/mL (<300); Troponin I < 50 ng/L (<or=60)
[2023-01-18 12:00] LABS: D-Dimer 2853 ng/mlFEU (<500)
[2023-01-18] MEDS: Normal Saline 1,000 ML 125 ML IV (13:05)
[2023-01-18 13:28] LABS: COVID-19 PCR Negative (Negative); Influenza A PCR Negative (Negative); Influenza B PCR Negative (Negative); RSV PCR Negative (Negative); Source Nasopharynx
--- NOTE | 2023-01-18 13:30 | DI.CT_ITS ---
Exam(s) CT CHEST PE CTA EXAM: CT CHEST PE CTA CLINICAL HISTORY: SOB, elevated d-dimer. TECHNIQUE: Imaging Protocol: Axial CT angiography was performed with multi-slice acquisition and mu lti-planar and/or 3D reconstructions. CONTRAST MATERIAL: Intravenous: Omnipaque 350 contrast volume:100 mL COMPARISON: No exams were available for comparison FINDINGS: The examination is limited due to patient motion artifact. Tracheobronchial tree: Patent where visualized. Pulmonary parenchyma: Calcified granuloma present. Small ground-glass infiltrate in the right middle lobe. There are small bilateral pleural effusions left greater than right. Mild subjacent infiltra te is seen in the left lower lobe. No architectural distortion. Pulmonary Arteries: There is no evidence of a pulmonary embolism to the segmental level. Subsegmenta l pulmonary arteries are difficult to evaluate due to patient motion artifact. Mediastinum and Noa: No dominant adenopathy or fluid collection. The esophagus is unremarkable. Visualized thyroid gland: Unremarkable. Pleura: No pneumothorax. Heart: Cardiomegaly. Three vessel coronary artery calcification and/or stents. No pericardial effus ion. Aorta: Thoracic aorta non-dilated. Atherosclerosis. Due to the timing of the bolus there is decrease d enhancement of the thoracic aorta. Upper abdomen: There is reflux of contrast into the IVC. Soft tissues: Unremarkable. Bones: Within normal limits for the patient's age. IMPRESSION: 1. No evidence of pulmonary embolism or thoracic aortic aneurysm. 2. Cardiomegaly and bilateral pleural effusions suspicious for congestive heart failure. Please julio elate clinically. 3. Subjacent infiltrates in the lung bases likely reflecting atelectasis. 4. Findings were discussed with Dr. Alvarez at 3:37 p.m. on 01/18/2023. RADIATION DOSE DELIVERED: Total DLP DATA REPOSITORY: All CT scans at this facility are submitted to the National Radiology Data Registry (NRDR) Dose Index Registry (DIR) with the [employer] (ACR). RADIATION OPTIMIZATION: All CT scans at this facility use at least one of these dose optimization te chniques: automated exposure control; mA and/or kV adjustment per patient size (includes targeted exa ms where dose is matched to clinical indication); or iterative reconstruction.
[2023-01-18] MEDS: Furosemide 20 MG/2 ML VIAL IVP (13:46)
[2023-01-18] MEDS: Normal Saline Flush 10 ML SYR IVP ×2 (14:52→20:00)
[2023-01-18] MEDS: Normal Saline - Diluent 50 ML VIAL IJ (14:53)
[2023-01-18 14:55] LABS: Troponin I 50 ng/L (<or=60)
[2023-01-18] MEDS: Omnipaque 350 MG/ML 100 ML BTL IJ (14:55)
--- NOTE | 2023-01-18 15:45 | W.PM.HP.N ---
Date of service: 01/18/23 Time of Service: 15:45 Assessment and Plan Assessment and plan (1) Heart failure: Status: Acute Assessment and plan: no oxygen requirements, serial troponins negative, will check one more in am echo pending for tomorrow am recieved IV lasix monitor I&O, daily weight. (2) History of total right hip replacement: Status: Acute Assessment and plan: continue routine post operative care seen by Dr Wood today, no new orders. (3) Type 2 diabetes mellitus: Status: Acute Assessment and plan: will hold oral agents while hospitalized diabetic diet, sliding scale as needed. discussed with DR Mendez. History of Present Illness History of Present Illness Chief Complaint: shortness of breath Narrative: presents to ED after developing sob one week ago, which was approx one week after hip replacement, otherwise post op ok. work up in the ED concerning for fluid overload. received lasix IV, PE ruled out by CT angio for PE. serial troponins negative. obs admission to hospitalist for further monitoring. echo pending for am [facility] All Active Problems (Updated 01/20/23 @ 00:02 by [employer]) Heart failure (Acute) Abnormal ECG (Acute) Chest pain (Acute) Shortness of breath (Acute) History of total right hip replacement (Acute 01/04/23) Type 2 diabetes mellitus (Acute) Atherosclerosis of coronary artery bypass graft (Acute) Medical History (Updated 01/20/23 @ 00:02 by [employer]) Obesity Low back pain Impotence Idiopathic osteoarthritis Hypertensive disorder Hyperlipidemia Claustrophobia Surgical History (Updated 01/20/23 @ 00:02 by [employer]) Status post left hip replacement DOS: 05/17/2014 History of colonoscopy Hx of CABG DOS: 03/23/2010 History of cystoscopy Social History Smoking/Tobacco Use Status: Never Smoking risk assessment performed?: Yes Alcohol Intake: current Alcohol Intake frequency: 0-2 drinks per day Drug use: Never Substance use type: does not use Housing: house Do you feel safe at home: Yes Do you feel safe in your relationship?: Yes Meds Allergies and Home Medications Allergies Allergy/AdvReac Type Severity Reaction Status Date / Time simvastatin AdvReac Mild muscle pain Verified 01/18/23 10:56 doxycycline AdvReac Nausea Verified 01/18/23 10:56 ezetimibe-simvastatin AdvReac Intermediate muscle pain Uncoded 01/18/23 10:56 Home Medications Medication Instructions Recorded Confirmed Type amlodipine 10 mg tablet 10 mg PO DAILY 06/13/22 01/18/23 History aspirin 81 mg tablet,delayed 81 mg PO DAILY 06/13/22 01/18/23 History release (Adult Aspirin Regimen) fenofibrate 160 mg tablet 160 mg PO DAILY 06/13/22 01/18/23 History losartan 100 mg tablet 100 mg PO DAILY 06/13/22 01/18/23 History rosuvastatin 40 mg tablet 40 mg PO DAILY 12/13/22 01/18/23 History semaglutide 3 mg tablet (Rybelsus) 3 mg PO DAILY 12/13/22 01/18/23 History acetaminophen 500 mg tablet 1,000 mg (2 x 500 mg) PO Q8H PRN 01/04/23 01/18/23 Rx pain #90 tabs aspirin 81 mg tablet,delayed 81 mg PO BID #60 tabs 01/04/23 01/18/23 Rx release glimepiride 2 mg tablet 2 mg PO DAILY 01/04/23 01/18/23 History pantoprazole 40 mg tablet,delayed 40 mg PO DAILY #30 tabs 01/04/23 01/18/23 Rx release celecoxib 200 mg capsule 200 mg PO BID pain 01/18/23 01/18/23 History furosemide 20 mg tablet (Lasix) 20 mg PO DAILY #7 tabs 01/19/23 Rx metoprolol succinate 100 mg 50 mg (1/2 x 100 mg) PO DAILY #0 01/19/23 01/18/23 Rx tablet,extended release 24 hr tabs Exam Const General: cooperative, healthy appearing, comfortable, no acute distress, well developed, well groomed and well hydrated Nutritional Appearance: average body habitus and well nourished Orientation: alert, awake and oriented x3 HENMT Head: normal to inspection, normocephalic and atraumatic Mouth: oral mucosae normal and moist mucous membranes Eyes General: appearance normal, both eyes and all related structures EOM: EOM intact bilaterally Neck Neck: normal visual inspection, full ROM and supple Chest Chest: normal inspection of the chest Resp Effort & Inspection: normal respiratory effort and able to speak in complete sentences Auscultation: clear to auscultation bilaterally Cardio Rate: regular rate Rhythm: regular rhythm GI Inspection: normal to inspection and non-distended Palpation: soft, no guarding and nontender Auscultation: normal bowel sounds General: No CVA tenderness Back/Spine/Pelvis Back: no CVA tenderness and No back tenderness Skin General skin exam: no rashes or lesions noted Neuro General: patient alert, patient awake, patient oriented x3 and moves all extremities Cranial Nerves: PERRL and EOM intact bilaterally Cognition: normal cognition Speech: speech normal Motor: muscle tone normal throughout and strength 5/5 throughout Sensory Exam: no sensory deficits noted Psych Appearance: grossly normal Speech and Movement: speech and movement normal Mood: congruent mood Affect: normal affect Attitude: cooperative Thought Process: normal Thought Content: normal Insight: insight good Judgment: judgment good Results Labs 01/19/23 06:03 01/19/23 06:03 Labs: Laboratory Results - last 24 hr 01/18/23 01/18/23 01/18/23 10:30 12:35 14:33 WBC 8.94 RBC 3.38 L Hgb 10.7 L Hct 32.3 L MCV 96 H MCH 31.7 MCHC 33.1 RDW 13.0 Plt Count 203 MPV 11.2 H Immature Gran % 0.3 Neutrophils % 83.1 Lymphocytes % 9.8 Monocytes % 4.6 Eosinophils % 1.9 Basophils % 0.3 Nucleated RBC % 0.0 Absolute Neutrophils 7.42 H Absolute Lymphocytes 0.88 L Absolute Monocytes 0.41 Absolute Eosinophils 0.17 Absolute Basophils 0.03 PT 10.9 INR 1.1 APTT 24.3 D-Dimer 2853 H Sodium 137 Potassium 4.0 Chloride 104 Carbon Dioxide 23.7 Anion Gap 9.3 BUN 25 H Creatinine 1.6 H Est GFR (CKD-EPI 2020) 45.78 Glucose 299 H Calcium 9.6 Magnesium 1.9 Total Bilirubin 0.5 AST 24 ALT 34 Alkaline Phosphatase 54 Troponin I < 50 50 NT-Pro-B Natriuret Pep 2486 H Total Protein 7.2 Albumin 3.5 COVID-19 Source Nasopharynx SARS-CoV-2 (PCR) Negative Influenza Type A (PCR) Negative Influenza Type B (PCR) Negative RSV (PCR) Negative Last Vital Signs Pulse 59 L 01/18/23 10:23 Resp 22 01/18/23 10:40 BP 161/70 H 01/18/23 10:23 Pulse Ox 99 01/18/23 10:30 PAWSS Have you Been Recently Intoxicated or Drunk Within the Last 30 days?: No Have you Ever Experienced Previous Episodes of Alcohol Withdrawal?: No Have you ever Experienced Withdrawal Seizures?: No Have you ever Experienced Delirium Tremens(DT)s?: No Have you ever undergone Alcohol Rehabilitation Treatment (i.e, inpt ot outpatient treatment programs)?: No Have you ever Experienced Blackouts?: No Have you ever Combined Alcohol with other Downers within the last 90 days?: No Result: 0 Time Spent Time spent with Patient: 40-54 minutes Time was spent: preparing to see the patient(eg.review tests), obtaining and/or reviewing separately otained hiistory, ordering medications,tests, procedures, indepentently interpreting results and counseling the patient
[2023-01-18] MEDS: Celecoxib 200 MG CAP PO (20:00)
[2023-01-18] MEDS: Aspirin E.C. 81 MG TABEC PO (20:00)
[2023-01-19] MEDS: Acetaminophen 500 MG TAB 1000 MG PO (02:55)
[2023-01-19 02:58] VITALS: BP 148/72; PULSE 52; RESP 18; TEMP 36.2; O2SAT 99
[2023-01-19 06:34] LABS: Abs Immature Grans 0.01 10^3/uL (0.0-0.06); Absolute Basophil Count 0.03 10^3/uL (0.0-0.2); Absolute Lymphocyte Count 0.99 10^3/uL (1.2-3.4); Absolute Monocyte Count 0.41 10^3/uL (0.1-0.8); Absolute Neutrophil Count 5.02 10^3/uL (1.2-6.7); Basophils % 0.5; HCT 31.5 % (40.0-50.0); HGB 10.5 g/dL (13.5-17.5); Immature Grans % 0.2; Lymphocytes % 14.9; MCH 31.8 pg (27.0-33.0); MCHC 33.3 % (32.0-36.0); MCV 96 fL (80-95); MPV 11.3 fL (8.0-11.0); Monocytes % 6.2; Neutrophils % 75.2; Platelet Count 182 10^3/uL (130-400); RDW-SD 44.1 fL; WBC 6.66 10^3/uL (4.4-10.8)
[2023-01-19 07:00] LABS: Anion Gap 10.9 mmol/L (3-11); BUN 23 mg/dL (7-18); CO2 25.1 mmol/L (21.0-32.0); CREATININE 1.3 mg/dL (0.70-1.30); Calcium 9.2 mg/dL (8.5-10.1); Chloride 107 mmol/L (98-107); Estimated GFR 58.73 (mL/min/1.73m2); Glucose 151 mg/dL (74-106); Potassium 3.9 mmol/L (3.5-5.1); Sodium 143 mmol/L (136-145); Troponin I < 50 ng/L (<or=60)
[2023-01-19 07:08] VITALS: BP 159/81; PULSE 52; RESP 18; TEMP 36.5; O2SAT 95
[2023-01-19] MEDS: Normal Saline Flush 10 ML SYR IVP (07:20)
[2023-01-19] MEDS: Pantoprazole 40 MG TABCR PO (07:21)
[2023-01-19] MEDS: Glimepiride 2 MG TAB PO (07:59)
[2023-01-19] MEDS: Losartan 50 MG TAB 100 MG PO (07:59)
[2023-01-19] MEDS: amLODIPine 10 MG TAB PO (07:59)
[2023-01-19] MEDS: Celecoxib 200 MG CAP PO (08:00)
[2023-01-19] MEDS: Aspirin E.C. 81 MG TABEC PO (08:00)
[2023-01-19] MEDS: Furosemide 20 MG/2 ML VIAL IVP (10:09)
[2023-01-19 10:52] VITALS: BP 135/79; PULSE 56; RESP 20; TEMP 36.7; O2SAT 95
--- NOTE | 2023-01-19 11:40 | W.PM.DS.N ---
Date of service: 01/19/23 Time of Service: 11:40 DS: Diagnosis Discharge Diagnosis (1) Heart failure: Status: Acute (2) History of total right hip replacement: Status: Acute (3) Type 2 diabetes mellitus: Status: Acute Discharge Plan Disposition Patient Disposition: Home Condition: Stable Discharge Details Reason For Visit: heart failure Admit Date/Time: 01/18/23 15:41 Admit Provider: Xiang Mendez Attending Provider: Xiang Mendez Primary Care Provider: GUILLAUME JIMENEZ Hospital Course Hospital Course: This is a 73-year-old male patient past medical history significant for coronary artery disease status post bypass, diabetes mellitus type 2, status post total right hip replacement on January 04, 2023 who presented to the emergency department after a 1 week history of increasing shortness of breath with activity that started 1 week postoperatively. He has been taking his aspirin twice daily for DVT prophylaxis. He has had no fevers or cough. Did note that his shortness of breath worse when he lays down with activity. He denied any chest pain his work-up in the emergency department was concerning for fluid overload his troponin was negative COVID influenza RSV swab negative and there was no evidence of infiltrate or infection on chest x-ray. Even though they did not suspect PE a D-dimer was obtained and most likely secondary to his recent surgery is elevated but as now we cannot definitively rule out a PE he did get a CT which did rule out the PE. There was no evidence of pneumonia or other infectious process to explain his shortness of breath. He did appear fluid overloaded he had received Lasix with good effect. An echocardiogram was obtained and did show EF of 58% with normal left ventricular size and left ventricular systolic function. Right atrium was mildly dilated there was no aortic valvular stenosis no significant valvular disease no pericardial effusion RVSP is 50 mmHg. He was also noted to be bradycardic with a heart rate in the 40s which we feel was contributing to his fluid overload. He reports his beta-alan was recently doubled from 50 to 100 mg. He remained hemodynamically stable with serial troponins negative. His symptoms improved with diuresis. He is stable for discharge to home for outpatient stress test and cardiology evaluation. He will be given 1 week of 20 mg Lasix daily and was advised to reduce his Metroprolol back to 50 mg daily. He was advised to return for new or worsening symptoms or follow-up with primary care provider and cardiology outpatient for further recommendations and work-up. discharge discussed with DR Dozier Home Meds and New Rx's Prescriptions: New furosemide [Lasix] 20 mg tablet 20 mg PO DAILY Qty: 7 0RF Continued aspirin 81 mg tablet,delayed release (DR/EC) 81 mg PO BID Qty: 60 0RF pantoprazole 40 mg tablet,delayed release (DR/EC) 40 mg PO DAILY Qty: 30 0RF acetaminophen 500 mg tablet 1,000 mg PO Q8H PRN (Reason: pain) Qty: 90 3RF amlodipine 10 mg tablet 10 mg PO DAILY aspirin [Adult Aspirin Regimen] 81 mg tablet,delayed release (DR/EC) 81 mg PO DAILY Hold Instructions: Resume on 02/03/23. fenofibrate 160 mg tablet 160 mg PO DAILY losartan 100 mg tablet 100 mg PO DAILY rosuvastatin 40 mg tablet 40 mg PO DAILY glimepiride 2 mg tablet 2 mg PO DAILY Patient Comments: TAKE ONE TABLET BY MOUTH EVERY DAY celecoxib 200 mg capsule 200 mg PO BID Changed metoprolol succinate 100 mg tablet extended release 24 hr 50 mg PO DAILY Qty: 0 0RF No Action Rybelsus 3 mg tablet 3 mg PO DAILY Hold Instructions: Changed by Provider Discharge Instructions Instructions: Heart Failure (DC) Stand Alone Forms: Nursing Discharge Form Referrals: GUILLAUME JIMENEZ [Primary Care Provider] - (Office will call you later this afternoon to set up appointment. ) Ana Gomez MD [ [facility] STAFF PHYSICIAN] - (Office will call you next week with an appointment) Activity:: Activity as Tolerated Equipment/Supplies:: No Equipment Needed Diet:: Carb Counting Discharge Orders Discharge Orders: Discharge Order (Routine); Ordered 01/19/23 Ordered By: Pat Osborne Other Ambulatory Orders: [facility] rest & stress day 2 (Routine) Location: None Selected Ordered By: Pat Osborne Discharge Data Discharge Date/Time-TO BE ENTERED AT DEPARTURE: 01/19/23 13:04 DS: Summary Time Spent with Patient providing and/or coordinating discharge services: Less than 30 minutes Status at Discharge Functional status at discharge: independent ambulation Overall status at discharge: patient is progressing back to baseline Mental Status: mental status grossly normal Speech and Movement: speech and movement normal Mood: congruent mood Affect: normal affect Exam Psych Mental Status: mental status grossly normal Speech and Movement: speech and movement normal Mood: congruent mood Affect: normal affect DS: Data Vitals/I&O Vitals and I&O: Vital Signs Temperature 36.7 C 01/19/23 10:52 Temperature Source Tympanic 01/19/23 10:52 Pulse 56 L 01/19/23 10:52 Pulse Rhythm Regular 01/19/23 07:25 Pulse 52 L 01/18/23 16:10 Respiratory Rate 20 01/19/23 10:52 Respiratory Effort Normal 01/19/23 07:25 Respiratory Depth Normal 01/19/23 07:25 Respiratory Pattern Normal 01/19/23 07:25 Blood Pressure 135/79 01/19/23 10:52 Blood Pressure Mean 81 01/18/23 14:46 Pulse Oximetry 95 01/19/23 10:52 Oxygen Delivery Method Room Air 01/19/23 10:52 Oxygen Flow Rate 0 01/19/23 10:52 Pain Level 0 01/19/23 10:52 Intake & Output 01/18/23 01/18/23 01/19/23 11:59 23:59 11:59 Intake Total 10 / 1010 1000 / 1010 130 / 130 Output Total 5 / 1925 875 / 875 Balance 10 / -915 -925 / -915 -745 / -745 Weight 102.058 kg 102.75 kg Intake: IV 10 / 1010 1000 / 1010 10 / 10 Oral 120 / 120 Output: Urine 1924 / 1925 875 / 875 Other: Urine Color Yellow Yellow Urine Appearance Clear Clear Urine Odor Normal None Comment voided large amount *2 per patient report Voiding Methods Urinal Urinal Data Completed and Pending Labs on day of discharge: Labs from last 24 hours 01/19/23 01/18/23 01/18/23 06:03 14:33 12:35 WBC 6.66 RBC 3.30 L Hgb 10.5 L Hct 31.5 L MCV 96 H MCH 31.8 MCHC 33.3 RDW 13.0 Plt Count 182 MPV 11.3 H Immature Gran % 0.2 Neutrophils % 75.2 Lymphocytes % 14.9 Monocytes % 6.2 Eosinophils % 3.0 Basophils % 0.5 Nucleated RBC % 0.0 Absolute Neutrophils 5.02 Absolute Lymphocytes 0.99 L Absolute Monocytes 0.41 Absolute Eosinophils 0.20 Absolute Basophils 0.03 D-Dimer Sodium 143 Potassium 3.9 Chloride 107 Carbon Dioxide 25.1 Anion Gap 10.9 BUN 23 H Creatinine 1.3 Est GFR (CKD-EPI 2020) 58.73 Glucose 151 H Calcium 9.2 Troponin I < 50 50 COVID-19 Source Nasopharynx SARS-CoV-2 (PCR) Negative Influenza Type A (PCR) Negative Influenza Type B (PCR) Negative RSV (PCR) Negative 01/18/23 10:30 WBC RBC Hgb Hct MCV MCH MCHC RDW Plt Count MPV Immature Gran % Neutrophils % Lymphocytes % Monocytes % Eosinophils % Basophils % Nucleated RBC % Absolute Neutrophils Absolute Lymphocytes Absolute Monocytes Absolute Eosinophils Absolute Basophils D-Dimer 2853 H Sodium Potassium Chloride Carbon Dioxide Anion Gap BUN Creatinine Est GFR (CKD-EPI 2020) Glucose Calcium Troponin I COVID-19 Source SARS-CoV-2 (PCR) Influenza Type A (PCR) Influenza Type B (PCR) RSV (PCR) PFSH All Active Problems (Updated 01/20/23 @ 00:02 by [employer]) Heart failure (Acute) Abnormal ECG (Acute) Chest pain (Acute) Shortness of breath (Acute) History of total right hip replacement (Acute 01/04/23) Type 2 diabetes mellitus (Acute) Atherosclerosis of coronary artery bypass graft (Acute) Medical History (Updated 01/20/23 @ 00:02 by [employer]) Obesity Low back pain Impotence Idiopathic osteoarthritis Hypertensive disorder Hyperlipidemia Claustrophobia Surgical History (Updated 01/20/23 @ 00:02 by [employer]) Status post left hip replacement DOS: 05/17/2014 History of colonoscopy Hx of CABG DOS: 03/23/2010 History of cystoscopy Social History Smoking/Tobacco Use Status: Never Smoking risk assessment performed?: Yes Alcohol Intake: current Alcohol Intake frequency: 0-2 drinks per day Drug use: Never Substance use type: does not use Housing: house Do you feel safe at home: Yes Do you feel safe in your relationship?: Yes Time Spent with Patient Time Spent with Patient: <45 minutes Time was spent: preparing to see the patient(eg.review tests), ordering medications,tests, procedures, indepentently interpreting results and counseling the patient
--- NOTE | 2023-01-19 12:32 | DI.US_ITS ---
APPROVED REPORT EXAM: Comprehensive 2D, Doppler, and color-flow Echocardiogram Patient Location: In-Patient Room/Bed: 231 Assistant Professor Of Economics: Ade Tomas RDCS (AE) Indications: Chest pain, SOB, CABG 2010 Other Information Study Quality: Fair Conclusion Normal left ventricular wall thickness and chamber size. Ejection fraction is 58%. There are no seg mental wall motion abnormalities Normal right ventricular size and systolic function Both atria are mildly enlarged Aortic valve is trileaflet with trace to mild regurgitation Normal mitral valve with mild to moderate regurgitation Normal tricuspid valve with moderate regurgitation. Estimated right ventricular systolic pressure is 50 mmHg Wall motion Left Ventricle The left ventricle is normal size. The left ventricular systolic function is normal. The left ventric ular ejection fraction is within the normal range. There is normal left ventricular wall thickness. T here is normal LV segmental wall motion. There is no ventricular septal defect visualized. LVEF is 58 %. Right Ventricle Right ventricle is grossly normal in size. Right ventricular systolic function is grossly normal. Atria Left atrium is mildly dilated. Right atrium is mildly dilated. The interatrial septum is intact with no evidence for an atrial septal defect. Aortic Valve The aortic valve is normal in structure. Aortic valve is trileaflet. There is no aortic valvular sten osis. Trace to mild aortic regurgitation. Mitral Valve The mitral valve is normal in structure. No evidence of mitral valve stenosis. Mild to moderate john l regurgitation. Tricuspid Valve The tricuspid valve is normal in structure. There is no tricuspid valve stenosis. Moderate tricuspid regurgitation. The RVSP is 50.1_ mmHg. Pulmonic Valve The pulmonary valve is normal in structure. There is no pulmonic valvular stenosis. There is no pulmo christianne valvular regurgitation. Great Vessels The aortic root is normal in size. The ascending aorta is normal in size. Aortic arch is normal in ca liber. IVC is normal in size and collapses >50% with inspiration. Pericardium There is no pericardial effusion. 2D Dimensions IVSD d PLAX 0.95 cm M: 0.6-1.2 Ao Root d 3.11 cm M: 3.1 - 3.7 LVPW d PLAX 0.91 cm M: 0.6 - 1.2 Ao Asc Diam d 3.15 cm M: 2.6 - 3.4 LVID d PLAX 4.87 cm M: 4.2 - 5.8 LVDs 3.37 cm M: 2.5 - 4.0 LV EF Teichholz 58.1 % FS 30.70 % LV EDV (Teich) 110.9 mL LV ESV (Teich) 46.5 mL Auto EF LV EDV A4C 152.7 mL LV EDV A2C 169.9 mL LV EDV BP 163.1 mL LV ESV A4C 57.7 mL LV ESV A2C 72.2 mL LV ESV BP 66.0 mL LVEF(%) A4C 62.2 % LVEF(%) A2C 57.5 % LVEF(%) BP 59.5 % LV SV A4C 95.0 ml LV SV A2C 97.6 ml LV SV BP 97.0 ml LV CO A4C 5.2 L/min LV CO A2C 5.7 L/min LV CO BP 5.5 L/min HR A4C 55.20 BPM HR A2C 58.25 BPM LV EDV Index (BP) LV Strain Long Pk Overal Avg (s) 15.66 LA Volume LA Length A4C 6.2 cm LA Length A2C 6.0 cm LA Area A4C s 24.89 cm2 LA Area A2C s 29.60 cm2 LA Vol A4C A-L 84.34 mL LA Vol A2C A-L 123.73 mL LA Vol Biplane A-L 104.0 mL LA Vol/BSA A4C A-L LA Vol/BSA A2C A-L LA Vol/BSA BP A-L 48.4 mL/m2 LA Vol A4C MOD 80.8 mL LA Vol A2C MOD 117.5 mL LA Vol BP MOD 99.2 mL RA Volume RA Area A4C 17.4 cm2 RA ESV A4C (A-L) 45.4mL RA Vol/BSA A4C A-L RA Length A4C 5.6 cm RA ESV A4C (MOD) 43.9mL LV Diastology MV E' medial 0.046 (>0.07 m/s) MV E Vmax 1.20 (0.4-1.3 m/s) MV E/E' MED 26.16 (<14) MV A Vmax 0.40 (0.4-1.3 m/s) MV E' lateral 0.054 (>0.1 m/s) E/A Ratio 3.0 MV E/E' LAT 22.49 (<14) MV E' Average 0.050 m/s MV E/E'(average) 24.19 Aortic Valve AoV Vmax 1.65 m/s LVOT Vmax 1.16 m/s AoV Peak Grad 38.2 mmHg LVOT Peak Grad 5.3 mmHg AoV Area (Vmax) 2.24 cm2 LVOT VTI 0.289 m AoV VTI 0.406 m LVOT Mean Grad 3.1 mmHg AoV Mean Ez. 1.14 m/s LVOT SV 92.67 mL AoV Mean Grad 5.9 mmHg LVOT Diam s 2.00 cm AoV Area (VTI) 2.28 cm2 AV Regurg Peak Gr. 65.35 mmHg Velocity Ratio 0.70 AR Decel [place] 2.1m/sec2 AR DT 1903 msec AR PHT 552 msec AR Vmax 4.04 m/s Mitral Valve MV DT 178 (160-240 msec) MR Vmax 4.75 m/s MV Vmax TIPS 1.06 m/s MR VTI 1.702 m MV Mean Grad 1.5 (<2mmHg) MR Peak Grad 90.3 mmHg MV VTI 0.302 m MR Mean Grad 66.0 mmHg Pulmonary Valve PV Vmax 1.08 (0.5-1.5 m/s) RVOT Vmax 0.58 m/s PV Peak Grad 4.7 mmHg RVOT Peak Gr. 1.4 mmHg PV Mean Ez 0.77 m/s RVOT VTI 0.124 m PV Mean Grad 2.8 mmHg RVOT Mean Gr. 0.7 mmHg Tricuspid Valve RA Pressure 3.00 mmHg TR Vmax 3.43 m/s TV S' 0.09 m/s TR Peak Grad 47.0 mmHg RVSP (TR) 50.1 mmHg
== END 2023-01-19 13:04 | disposition home or self-care (01) ==
LOC: ER 12:46 → MS 01-19 11:40
PROVIDERS: Nurse Practitioner Acute Care; Admitting Provider Family Medicine; Emergency Provider Emergency Medicine Emergency Medical Services; PCP Family Medicine; Visit Provider Family Medicine
DX: I11.0 Hypertensive heart disease with heart failure; R06.02 Shortness of breath; I50.9 Heart failure, unspecified; E11.9 Type 2 diabetes mellitus without complications; R94.31 Abnormal electrocardiogram [ECG] [EKG]; R00.1 Bradycardia, unspecified; R07.89 Other chest pain; I25.810 Atherosclerosis of coronary artery bypass graft(s) without angina pectoris; E66.9 Obesity, unspecified; M54.50 Low back pain, unspecified; E78.5 Hyperlipidemia, unspecified; Z95.1 Presence of aortocoronary bypass graft; Z79.84 Long term (current) use of oral hypoglycemic drugs; Z79.82 Long term (current) use of aspirin; Z79.899 Other long term (current) drug therapy; Z96.643 Presence of artificial hip joint, bilateral; Z68.34 Body mass index [BMI] 34.0-34.9, adult
CPT/HCPCS: 00123; 36415; 36416; 71275; 80048; 80053; 82962; 87637; 93005; 93306; 96360; 96361; 96374; 99291; 71045; 83735; 83880; 84484; 85025; 85379; 85610; 85730; 93010; 93971; 99223; 99238; G0378; J1941; J3490

== ENCOUNTER 2023-01-18 11:15 | Outpatient (CLI) | payer MEDICARE, SELFPAY ==
--- NOTE | 2023-01-18 09:30 | DI.RAD_ITS ---
Exam(s) XR HIP RT COMPLETE AP PELVIS EXAM: XR HIP RT COMPLETE AP PELVIS CLINICAL HISTORY: 1ST POST OP S/P R MOISES. TECHNIQUE: 2D digital imaging was performed. Two images were obtained. AP pelvis and lateral hip vi ews were obtained. COMPARISON: CR XR PELVIS AP from 12/08/2022 FINDINGS: BONES: There are stable post operative changes of a right total hip replacement present. No fracture or dislocation. The patient has a prior left total hip replacement. Dystrophic calcifications are s een adjacent to the left greater trochanter. JOINTS: The orthopedic hardware is in good position. No evidence of hardware loosening. SOFT TISSUE: Atherosclerosis. IMPRESSION: Stable postoperative changes. DATA REPOSITORY: RADIATION DOSE DELIVERED:
== END 2023-01-18 11:16 | disposition home or self-care (01) ==
LOC: DIORS 11:15
PROVIDERS: PCP Family Medicine; Visit Provider Student in an Organized Health Care Education/Training Program
DX: Z96.641 Presence of right artificial hip joint (principal); Z47.1 Aftercare following joint replacement surgery; R06.02 Shortness of breath
CPT/HCPCS: 73502

== ENCOUNTER → 2023-01-23 00:44 | Outpatient (CLI) | payer MEDICARE, SELFPAY ==
--- NOTE | 2023-01-23 08:45 | DI.NM_ITS ---
APPROVED REPORT Exam: Pharmacologic Patient Location: Out-Patient Room/Bed: Stress Nurse: Charmaine Chambers RN Ordering Provider:WOO KRISTIE, Contact Number: [phone] BMI: 34.35 Baseline Rhythm: Sinus Bradycardia Medical History Medical History: Heart failure, total right and left hip replacements, DMT2, idiopathic osteoarthriti s, HTN, HLD, CABG 2010 Cardiac Medications: Amlodipine, aspirin, fenofibrate, losartan, metoprolol XL, rosuvastatin, lasix Allergies: Ezetemibe-simvastatin, doxycycline Cardiac Risk Factors: Family hx, HTN, HLD, CVD, diabetes, obesity Previous Cardiac Procedures: CABG 2010 Pretest Chest Pain Characteristics: None Exercise History: Physically active Physical Disabilities: Hips Lung Sounds: Clear to auscultation Heart Sounds: Bradycardia Stress Test Details Test: Pharmacologic stress testing performed using 0.4 mg of regadenoson per 5 mL given IV over 10 s econds. Reason for pharmacologic stress test: physical limitation. Nuclear Acquisition: Rest Tc-99m/Stress Tc-99m 1 day Rest Isotope: Tc-99m Sestamibi. Dose: 10.0 Date: 01/23/2023 Injection Time: 0900 Stress Isotope: Tc-99m Sestamibi. Dose: 32.0 Date: 01/23/2023 Injection Time: 1022 HR Resting HR Supine: 55 bpm Max Heart Rate (APMHR): 149.249048 bpm Target HR (85% APMHR): 126.594556 bpm Max HR Achieved: 74 bpm % of APMHR: 49.66 Recovery HR: 64 bpm BP Resting BP Supine: 162/80 mmHg Max BP: 162/80 mmHg Recovery BP: 144/70 mmHg ECG Resting ECG: Sinus Bradycardia Ectopy: None Stress ECG: Sinus Rhythm ST Change: Nondiagnostic low heart rate Arrhythmia: None Recovery ECG: Sinus Rhythm Recovery ST Change: Nondiagnostic low heart rate Recovery Arrhythmia: None Clinical Stress Symptoms: None Angina Score: None Rate Pressure Product: [id number] Stress ECG Conclusion 1. Resting electrocardiogram showed poor R wave progression, nondiagnostic ST-T abnormalities 2. Testing was accomplished using pharmacologic stress with regadenoson 3. Peak heart rate achieved was 50% of predicted for age 4. Electrocardiographic portion of the test was nondiagnostic 5. See MPI report Stress Test Summary STAGE HR BP SpO2 Symptoms NOTES Supine 55 162/80 1 min post Lexiscan injection 62 160/74 94 3 min post Lexiscan injection 69 142/70 6 min post Lexiscan injection 64 144/70 98 MPI Conclusion Myocardial perfusion is normal. There is no ischemia or evidence of prior infarction Ejection fraction is 57% with normal wall motion Radiologist Interpretation Radiologist agrees with Head Piece Assembler's Interpretation. Radiologist Interpretation by: Mauro Johnson MD Interpretation Date/Time: 01/25/2023 13:18:10
[2023-01-23] MEDS: Regadenoson 0.4 MG/5 ML SYR IVP (10:19)
== END ==
PROVIDERS: PCP Family Medicine; Visit Provider Nurse Practitioner Acute Care
DX: I50.9 Heart failure, unspecified (principal)
CPT/HCPCS: 78452; 93016; 93018; 93017; J2785

== ENCOUNTER 2023-01-26 07:52 | Outpatient (CLI) | payer MEDICARE, SELFPAY ==
--- NOTE | 2023-01-26 07:45 | RT.EKG_ITS ---
APPROVED REPORT Exam: Resting ECG Reason for Exam: CAD Patient Location: O HR:61 bpm ECG Measurements Heart Rate 61 AXIS TX 176 P 21 QRSd 121 QRS 33 QT 425 T 73 QTc 428 Conclusion Sinus rhythm...normal P axis, V-rate 50- 99 Poor R wave progression
== END 2023-01-26 07:53 | disposition home or self-care (01) ==
LOC: DI.CARD 07:52
PROVIDERS: PCP Family Medicine; Visit Provider Internal Medicine Cardiovascular Disease
DX: I25.10 Atherosclerotic heart disease of native coronary artery without angina pectoris (principal); I50.9 Heart failure, unspecified; R07.9 Chest pain, unspecified
CPT/HCPCS: 93010

== ENCOUNTER → 2023-01-26 13:23 | Outpatient (BNVA) | payer MEDICARE, SELFPAY | PROVIDERS: PCP Family Medicine; Referring Provider Family Medicine; Visit Provider Internal Medicine Cardiovascular Disease | DX: I25.810 Atherosclerosis of coronary artery bypass graft(s) without angina pectoris (principal); I50.30 Unspecified diastolic (congestive) heart failure; R60.0 Localized edema | CPT/HCPCS: 93005; 99214 ==

== ENCOUNTER → 2023-02-26 14:59 | Outpatient (BNVA) | payer MEDICARE, SELFPAY | PROVIDERS: PCP Family Medicine; Visit Provider Student in an Organized Health Care Education/Training Program | DX: Z47.1 Aftercare following joint replacement surgery (principal); Z96.641 Presence of right artificial hip joint; R06.02 Shortness of breath ==

== ENCOUNTER 2023-07-09 15:22 | Outpatient (CLI) | payer MEDICARE, SELFPAY ==
[2023-07-09 14:15] LABS: Hemoglobin A1C 8.4 % (<5.7)
== END 2023-07-09 15:23 | disposition home or self-care (01) ==
LOC: LBO 15:23
PROVIDERS: PCP Family Medicine; Visit Provider Family Medicine
DX: E11.9 Type 2 diabetes mellitus without complications (principal)
CPT/HCPCS: 36415; 83036

== ENCOUNTER 2024-01-07 15:48 | Outpatient (CLI) | payer MEDICARE, SELFPAY ==
--- NOTE | 2024-01-07 15:15 | DI.RAD_ITS ---
Exam(s) XR HIP RT AP LAT ONLY EXAM: XR HIP RT AP LAT ONLY CLINICAL HISTORY: annual f/u R MOISES. TECHNIQUE: 2D digital imaging was performed. Two images were obtained. AP and lateral hip views wer e obtained. COMPARISON: CR XR HIP RT COMPLETE AP PELVIS from 01/18/2023 FINDINGS: BONES: There are stable post operative changes of a right total hip replacement present. No fracture or dislocation. JOINTS: The orthopedic hardware is in good position. No evidence of hardware loosening. SOFT TISSUE: Atherosclerotic calcification is present. IMPRESSION: Stable right total hip replacement. DATA REPOSITORY: RADIATION DOSE DELIVERED:
== END 2024-01-07 15:49 | disposition home or self-care (01) ==
LOC: DIORS 15:48
PROVIDERS: PCP Family Medicine; Referring Provider Family Medicine; Visit Provider Student in an Organized Health Care Education/Training Program
DX: Z47.1 Aftercare following joint replacement surgery (principal); Z96.641 Presence of right artificial hip joint
CPT/HCPCS: 99213; 73502